=== PATIENT | female | born 1960 | race Caucasian/White ===

== ENCOUNTER → 2017-11-12 19:03 | Outpatient (CLI) | payer OTHER | END | disposition home or self-care (01) | LOC: D.MAMMO 16:15 | DX: Z12.31 Encounter for screening mammogram for malignant neoplasm of breast (principal) ==

== ENCOUNTER 2018-02-05 05:30 | Day surgery (SDC) | payer OTHER ==
[2018-01-29 17:48] LABS: BASOPHILS 0.3 % (0-2); EOSINOPHILS 1.8 % (0-7); HEMATOCRIT 39.3 % (36.0-48.0); HEMOGLOBIN 12.9 g/dL (12-16); IMMATURE GRANULOCYTES 0.2 % (0-5); LYMPHOCYTES 26.2 % (15-50); MCH 31.5 pg (26.0-34.0); MCHC 32.8 g/dL (31.0-37.0); MCV 95.9 fL (80.0-100.0); MEAN PLATELET VOLUME 9.8 fL (7.4-10.4); MONOCYTES 6.3 % (2-11); NEUTROPHILS 65.2 % (40-80); PLATELET COUNT 239 10x3/uL (130-400); RDW 12.7 % (11.5-14.5)
[2018-01-29 18:24] LABS: CALC OSMOLALITY 284 mosm/kg (275-300); CALCIUM 9.3 mg/dL (8.5-10.1); CHLORIDE - SERUM 104 mmol/L (98-107); CREATININE - SERUM 0.7 mg/dL (0.6-1.3); GLUCOSE 97 mg/dL (74-106); POTASSIUM - SERUM 3.8 mmol/L (3.5-5.1); SODIUM 143 mmol/L (136-145); UREA NITROGEN 13 mg/dL (7-18); eGFR NON AFRICAN AMERICAN 90 mL/min (90-120)
[~2018-02-05] VITALS: Ht 167.6 cm; Wt 57.6 kg
[~2018-02-05 05:30] MED LIST: CALCIUM 600 +1 EAC3 PO; CLARITIN 10 MG10 MG PO; FLAXSEED OIL1000 MG PO; MULTI-DAY VITAM1 TAB PO; OMEPRAZOLE20 M1 PO; PEPCID AC20 MG PO; VITAMIN D2000 UNIT PO; VITAMIN E600 UNIT PO
[2018-02-05] MEDS ORDERED: VITAMIN C 500500 MG (06:32)
[2018-02-05 06:54] VITALS: BP 143/86; Ht 167.6 cm; Wt 57.6 kg
== END 2018-02-05 18:50 | disposition home or self-care (01) ==
LOC: D.OPS 05:30 → D.PAN 07:30 → D.OPS 18:50
PROVIDERS: Obstetrics & Gynecology
DX: N81.11 Cystocele, midline (principal); N81.6 Rectocele; N95.2 Postmenopausal atrophic vaginitis; N39.46 Mixed incontinence; Z01.812 Encounter for preprocedural laboratory examination

== ENCOUNTER → 2018-07-30 18:29 | Outpatient (CLI) | payer OTHER ==
[2018-02-05 06:54] VITALS: BMI 20.5
[~2018-07-30 18:29] MED LIST changes: +VITAMIN C 500500 MG
== END | disposition home or self-care (01) ==
LOC: D.LABREF 18:29
PROVIDERS: ATTEND Internal Medicine
DX: N39.0 Urinary tract infection, site not specified (principal)

== ENCOUNTER → 2018-08-08 15:34 | Outpatient (CLI) | payer OTHER ==
[2018-02-05 06:54] VITALS: BMI 20.5
== END | disposition home or self-care (01) ==
LOC: D.LABREF 15:34
PROVIDERS: ATTEND Urology
DX: D72.829 Elevated white blood cell count, unspecified (principal)

== ENCOUNTER 2018-08-26 08:20 | Outpatient (CLI) | payer OTHER ==
[2018-08-25 15:39] LABS: HEMATOCRIT 36.7 % (36.0-48.0); HEMOGLOBIN 12.5 g/dL (12-16); MCH 31.4 pg (26.0-34.0); MCHC 34.1 g/dL (31.0-37.0); MCV 92.2 fL (80.0-100.0); MEAN PLATELET VOLUME 9.9 fL (7.4-10.4); RBC 3.98 10x6/uL (4.00-5.40); RDW 13.5 % (11.5-14.5)
[~2018-08-26] VITALS: Ht 167.6 cm; Wt 59.0 kg
[2018-08-26 09:39] VITALS: BP 137/91; Ht 167.6 cm; Wt 59.0 kg
== END 2018-08-26 08:21 | disposition home or self-care (01) ==
LOC: D.OPS 08:20 → D.PAN 10:05 → EDSTATUS 10:05 → D.OPS 10:05
PROVIDERS: Anesthesiology; ATTEND Urology
DX: N39.3 Stress incontinence (female) (male) (principal); R10.2 Pelvic and perineal pain

== ENCOUNTER 2018-09-02 10:04 | Day surgery (SDC) | payer OTHER ==
[~2018-09-02 10:04] MED LIST changes: +FLAXSEED OIL; -FLAXSEED OIL1000 MG PO
[2018-09-02 10:28] LABS: HEMATOCRIT 38.5 % (36.0-48.0); MCH 30.9 pg (26.0-34.0); MCHC 33.8 g/dL (31.0-37.0); MCV 91.4 fL (80.0-100.0); RBC 4.21 10x6/uL (4.00-5.40); RDW 13.4 % (11.5-14.5); WBC 6.1 10x3/uL (4.8-10.8)
[2018-09-02 11:05] VITALS: BP 134/83; BMI 21.0
--- NOTE | 2018-09-02 19:14 | OP ---
PATIENT NAME: MONSTER CAICEDO MEDICAL RECORD: [id number] :58 LOCATION:D.OPS ADMISSION DATE: SURGEON: SHYLA SPRAGUE MD DATE OF OPERATION: 09/02/2018 SURGEON: Shyla Sprague MD ANESTHESIA: General anesthesia by Sascha Costello CRNA DIAGNOSES: Female stress urinary incontinence, cystocele Bois D Arc-Walker grade II, and severe pelvic pain with dyspareunia. PROCEDURES: Cystoscopy, release of previous bladder neck suspension and cystocele repair, placement of pubovaginal sling [employer] Obtryx II, cystocele repair with 8- x 12-cm Coloplast [place] cadaveric dermis. FINDINGS: On cystoscopy, no bladder injury and no bladder tumors. BLOOD LOSS: 500 mL. CLINICAL HISTORY: This is a 58-year-old female, A0, who was referred for recurrence of a midline cystocele, post Giovanna plication; female stress urinary incontinence, post bladder neck suspension surgery by Dr. Lisa Pineda on 02/19/2018. I have reviewed Dr. Pineda's operative notes and there seems to be a Giovanna plication as well as a stress incontinence treatment with periurethral suspension. There was also a rectocele repair which has continued to hold. The other 2 repairs have given away and she is now symptomatic again. She has severe vaginal pain now from the surgery and she cannot have sexual intercourse due to this. When I examined the patient, she had hypermobile urethra with stress urinary incontinence and positive Santosh test. She had severe tenderness bilaterally deep in the vaginal area where there appeared to be some kind of scar or suture, headed posteriorly to the sacrospinous region. There was also Bois D Arc-Walker grade II cystocele. The rectocele repair was solid and intact. She still has her uterus. She comes today to have the previous surgery released in order to remove the tension that is being caused on the pelvic floor by the previous surgery. Also she would like to have a pubovaginal sling to control the stress incontinence and repair the cystocele. SHE IS ALLERGIC TO BACTRIM, KEFLEX, LEVAQUIN, AND CODEINE. I gave her clindamycin IV on-call to the OR. DESCRIPTION OF PROCEDURE: The patient was given induction of general anesthesia in supine position. She was then placed into low lithotomy position and shaved, prepped, and draped. A weighted speculum was used to hold down the posterior vaginal wall. A 16-Emirati Francis catheter was placed into the bladder and put to bag drainage. Stay sutures of #2 nylon were placed through the labia majora into the medial thighs. These were used to retract the labia majora laterally. Scarring from the previous surgery was seen on the anterior vaginal wall. Anterior vaginal wall was infiltrated with vasopressin solution. Twenty units of vasopressin in 100 mL of injectable saline was the concentration that we used. This was used for hydrodissection of the anterior vaginal wall. A transverse incision was made about 1 cm distal to the urethral meatus. This seems to be the area where the previous incision had been made by Dr. Pineda. Dissection was done using the Metzenbaum scissors. I went through the area of the previous periurethral suspension. I could not find any of the suture that Dr. Pineda used. Specifically, I could not find the [place]-Kristian bolsters that she OPERATIVE REPORT [id number] MONSTER CAICEDO used. These are probably incorporated in scar tissue. Continuing more proximally under the cystocele, I came to the area where there were tight bands previously. Instead of suture material, these seemed to be just scar tissue from her previous repair. I released these entirely. At the end of the dissection, we were at the cervical cuff. On either side, the pubocervical fascia was entirely free. The obturator membrane was entirely clear on both sides. The space of Retzius was opened. This way, the presacral space containing the ischial spine and the sacrospinous ligaments was also cleared. Here, I put my 4 suspensory sutures for the cystocele repair in place. They were of 2-0 Prolene and placed in the Capio sutures. The 2 posterior sutures were placed in the sacrospinous ligaments 1 cm medial to the ischial spine. The reason for going 1 cm medial is to avoid hitting the internal pudendal arteries and nerves. The 2 anterior suspensory sutures were placed through the obturator membrane. I also landmarked for the pubovaginal sling. The landmark is inferior to the insertion of the adductor longus muscle and the descending pubic ramus. Stab incisions were made here. I then placed the helical trocars of the Glassful Obtryx device deep to the descending pubic ramus and out through the anterior apex of the obturator membrane and into the vaginal dissection space. Here, the graft arms were attached to the tips of the needles and the needles were withdrawn to result in transobturator passage of the graft. The graft was placed under the mid urethra with the midpoint of the graft under the mid urethra. There was no tension placed on the graft at this time. At this point, the Francis catheter was removed and we performed cystoscopy using a 17-Emirati cystoscope with 30-degree lens. No bladder tumors were seen and no bladder injury was seen. The bladder was filled to at least 500 mL using normal saline through the cystoscope. The scope was then removed. I then measured the distance from the bladder neck to the cervical neck dissection. This was 6 cm. The distance from ischial spine to ischial spine was about 10 cm. An 8 x 12 sheet of cadaveric dermis was obtained. I cut it down to 8 x 10 and then, in the mid portion, the arch was cut out so that the depth of the mid portion was 6 cm. This was hydrated using saline and gentamicin solution. The 4 suspensory sutures were placed to the respective coronaries. These sutures were all tied down to result in the cystocele repair. At this point, the pubovaginal sling was still placed loosely underneath the mid urethra. By pushing on the suprapubic region, we could force urine to leak out per the urethra. Gently, the tension on the sling was increased until further pushing did not result in any further leakage. At this point, the sling tension was set. Thick clear plastic sheath material on either side of the graft arms was removed entirely. The graft arms were cut where they exited the inguinal skin. The stab incisions in the groin were closed using 3-0 Vicryl. The wound was irrigated out with normal saline and the transverse vaginal incision was closed using running 4-0 Monocryl. Vaginal packing was inserted consisting of Kerlix with estrogen cream. This will be removed prior to her going home today. The Francis catheter was then removed. I will give her a voiding trial today. If she cannot void, then she will have to go home with a Francis catheter. I will see her in follow up next week to check on her voiding symptoms. TRANSINT:[id number] Voice Confirmation ID: [id number] DOCUMENT ID: [id number] OPERATIVE REPORT [id number] MONSTER CAICEDO, SHYLA Pan MD at 1914 CC: [id number] DICTATION DATE: 09/02/181713 MILLROOM SUPERVISOR: 09/02/18 1850 [facility] [address] [place] [id number]
--- NOTE | 2018-09-02 21:27 | NUR ---
2044 UP TO BATHROOM AND UNABLE TO URINATE. BLOOD NOTED IN TOILET. 2099 IV REMOVED 2109 GOYAL INSERTED W/O DIFFICULTY. 550 ML OF CLEAR YELLOW URINE NOTED. PT CONNECTED TO LEG BAG PER REQUEST AND INSTRUCTIONS GIVEN. RX AND POST OP INSTRUCTIONS GIVEN. PT MILDLY NAUSEATED AT TIMES.
[2018-11-03] MEDS ORDERED: ZYRTEC10 MG (14:26)
[2018-11-03] MEDS ORDERED: PROBIOTIC BLEN1 EACH (14:29)
== END 2018-09-02 21:25 | disposition home or self-care (01) ==
LOC: D.OPS 10:04 → D.PAN 12:45 → D.OPS 21:25
PROVIDERS: Anesthesiology; ATTEND Urology
DX: N39.3 Stress incontinence (female) (male) (principal); N81.11 Cystocele, midline; N94.19 Other specified dyspareunia; Z01.812 Encounter for preprocedural laboratory examination

== ENCOUNTER → 2018-09-10 20:40 | Outpatient (CLI) | payer OTHER ==
[2018-09-02 11:05] VITALS: BMI 21.0
[~2018-09-10 20:40] MED LIST changes: -FLAXSEED OIL; +FLAXSEED OIL1000 MG PO
== END | disposition home or self-care (01) ==
LOC: D.LABREF 20:40
PROVIDERS: ATTEND Urology
DX: D72.829 Elevated white blood cell count, unspecified (principal); R31.9 Hematuria, unspecified

== ENCOUNTER → 2018-09-22 11:25 | Outpatient (CLI) | payer OTHER ==
[2018-09-02 11:05] VITALS: BMI 21.0
== END | disposition home or self-care (01) ==
LOC: D.LABREF 11:25
PROVIDERS: ATTEND Urology
DX: D72.829 Elevated white blood cell count, unspecified (principal)

== ENCOUNTER 2018-11-04 07:21 | Day surgery (SDC) | payer OTHER ==
[~2018-11-04] VITALS: Ht 167.6 cm; Wt 58.1 kg
[~2018-11-04 07:21] MED LIST changes: +FLAXSEED OIL; -FLAXSEED OIL1000 MG PO; +PROBIOTIC BLEN1 EACH; +ZYRTEC10 MG
[2018-11-04 07:44] LABS: HEMATOCRIT 32.8 % (36.0-48.0); HEMOGLOBIN 10.6 g/dL (12-16); MCH 27.9 pg (26.0-34.0); MCHC 32.3 g/dL (31.0-37.0); MCV 86.3 fL (80.0-100.0); MEAN PLATELET VOLUME 9.4 fL (7.4-10.4); RBC 3.8 10x6/uL (4.00-5.40); RDW 13.7 % (11.5-14.5); WBC 5.5 10x3/uL (4.8-10.8)
[2018-11-04 08:57] VITALS: BP 143/80; Ht 167.6 cm; Wt 58.1 kg
--- NOTE | 2018-11-04 12:12 | NUR ---
1205 DR. DARCIE COLEMAN.
--- NOTE | 2018-11-04 12:49 | OP ---
PATIENT NAME: MONSTER CAICEDO MEDICAL RECORD: [id number] :58 LOCATION:D.OPS ADMISSION DATE: SURGEON: SHYLA SPRAGUE MD DATE OF OPERATION: 11/04/2018 SURGEON: Shyla Sprague MD ANESTHESIA: TIVA by Twin Solano CRNA. DIAGNOSIS: Female stress urinary incontinence persistence. PROCEDURE: Cystoscopy, injection of periurethral bulking agent Durasphere times 2 syringes. FINDINGS: On cystoscopy, open urethra, single ureteral orifices bilaterally. BLOOD LOSS: None. CLINICAL HISTORY: This is a 58-year-old female who had release of a bladder suspension that Dr. Pineda put in. She also had placement of a pubovaginal sling and a cystocele repair with cadaveric dermis. Postoperatively, she had urinary retention, but the catheter was removed over 4 weeks ago. After this bladder surgery, she had nasal sinus surgery, which caused her to have a lot of chronic coughing and sneezing. This caused the sling to loosen up and now she has persistent stress urinary incontinence. This was seen on pelvic examination. The vaginal incision has fully healed. She comes to have injection of periurethral bulking agents to increase the sling tension and to increase the coaptation of the urethral mucosa. She is allergic to numerous antibiotics, but she could tolerate clindamycin. This is what we gave her for her perioperative antibiotics. DESCRIPTION OF PROCEDURE: The patient was given IV sedation. She was then placed into lithotomy position, prepped and draped. A 21-Korean cystoscope was used for visualization. The bladder neck was opened. The Arnoldo's injection needle was placed into the submucosa on the right side near the bladder neck. One syringe of durasphere was injected here and this resulted in a good elevation of the mucosa. The syringe did result in locking up or occlusion of the injection needle, which is a common problem with Durasphere injection. On the patient's right side, we attempted a similar injection. This locked up part way through the injection. We then used a third needle on the right side and this finally allowed us to give the final amount of the second syringe on to the right side. Thus, she has 1 syringe on each side. She could use more; however, all of our needles that are available have now been occluded with this material and we do not have any further needles available to carry on. With suprapubic pressure, I can still elicit some urinary leakage. I will have to see her back in follow up to see how her symptoms are with the 2 units that have been injected. TRANSINT:[id number] Voice Confirmation ID: [id number] DOCUMENT ID: [id number] OPERATIVE REPORT [id number] MONSTER CAICEDO ROBERT S MD at 1249 CC: [id number] DICTATION DATE: 11/04/18 1203 PSYCHIATRIC NURSE PRACTITIONER: 11/04/18 1246 [address] [facility] [address] [place] [address]
== END 2018-11-04 14:19 | disposition home or self-care (01) ==
LOC: D.OPS 07:21
PROVIDERS: Anesthesiology; ATTEND Urology
DX: N39.3 Stress incontinence (female) (male) (principal); Z01.812 Encounter for preprocedural laboratory examination

== ENCOUNTER → 2018-11-26 17:36 | Outpatient (CLI) | payer OTHER ==
[2018-11-04 08:57] VITALS: BMI 20.7
== END | disposition home or self-care (01) ==
LOC: D.LABREF 17:36
PROVIDERS: ATTEND Urology
DX: R31.9 Hematuria, unspecified (principal); D72.819 Decreased white blood cell count, unspecified

== ENCOUNTER 2019-10-15 19:00 | Outpatient (CLI) | payer OTHER ==
[2018-11-04 08:57] VITALS: BMI 20.7
== END 2019-10-15 23:59 | disposition home or self-care (01) ==
LOC: D.MAMMO 19:00
PROVIDERS: ATTEND Family Medicine
DX: Z12.31 Encounter for screening mammogram for malignant neoplasm of breast (principal)